=== PATIENT | female | born 1970 | race Caucasian/White ===

== ENCOUNTER 2018-05-01 08:06 | Inpatient (IN) ==
--- NOTE | 2018-03-31 14:14 | Anesthesiology Consultation ---
Date of Service March 31, 2018 Assessment & Plan (1) Encounter for pre-operative examination: Plan: CHECK TEST AM DOS *POSSIBLE DIFFICULT INTUBATION BASED ON EXAM* Chart Review Chart Review: Acceptable Risk for Surgery and Patient seen in Pre Admission Testing Teaching & Discussion Instructed NPO after midnight before surgery, except medications with 15 cc of water. Medication instructions provided according to the PAT guidelines. History Surgery Operation Date: 05/01/18 10:40 Proposed Procedures p Right Total Knee Arthroplasty - Abhinav Herrera MD Height/Weight Height: 5 ft Weight: 94.3 kg Allergies Allergy/AdvReac Type Severity Reaction Status Date / Time azithromycin [From Zithromax] AdvReac Severe VOMITING Verified 03/28/18 09:58 AND HEADACHE hydralazine AdvReac Severe LIGHTHEADED, Verified 03/28/18 09:58 VOMITING, HEADACHE amoxicillin AdvReac NOT Verified 03/28/18 09:58 EFFECTIVE Medications Home Medications Medication Instructions Recorded Confirmed Last Taken albuterol sulfate [Ventolin HFA] 2 puff INHALATION Q4H PRN 03/28/18 03/28/18 Unknown atenolol 50 mg PO BID 03/28/18 03/28/18 Unknown buspirone 5 mg PO BID PRN 03/28/18 03/28/18 Unknown cephalexin 500 mg PO QID 03/28/18 03/28/18 Unknown citalopram 10 mg PO HS 03/28/18 03/28/18 Unknown cyanocobalamin (vitamin B-12) 1,000 mcg PO QAM 03/28/18 03/28/18 Unknown [Vitamin B-12] digestive enzymes 1 tab PO AC 03/28/18 03/28/18 Unknown fexofenadine [Aliya Allergy] 180 mg PO HS 03/28/18 03/28/18 Unknown fexofenadine-pseudoephedrine 1 tab PO Q12H PRN 03/28/18 03/28/18 Unknown [Alyia-D 12 Hour] fluconazole 150 mg PO UD 03/28/18 03/28/18 Unknown fluticasone [Flonase Allergy 2 spray INTRANASAL BID PRN 03/28/18 03/28/18 Unknown Relief] lutein 6 mg PO HS 03/28/18 03/28/18 Unknown meloxicam 15 mg PO QAM 03/28/18 03/28/18 Unknown nifedipine 30 mg PO QAM 03/28/18 03/28/18 Unknown turmeric root extract 500 mg PO HS PRN 03/28/18 03/28/18 Unknown turmeric root extract 500 mg PO QDL 03/28/18 03/28/18 Unknown Past Medical History Medical History Anxiety Asthma EXERCISE INDUCED. Cellulitis of leg 01/2018. Treated OP with ABX. Resolved now. Wearing compression stockings. Depression Hypertension Morbid (severe) obesity due to excess calories Nausea and vomiting after administration of anesthetic agent Osteoarthritis Past Surgical History Surgical History H/O laparoscopy For infertility H/O wisdom tooth extraction History of PONV Yes Motion Sickness Screening History of Motion Sickness: Yes Social History Smoking Status: Never smoker Do You Dip or Chew Tobacco: No Hx Alcohol Use: No Hx Substance Use: No substance use type: does not use Exercise / Class Metabolic Activity III < 4 Walking/Shop/Light housework (some +SOB with stairs but no CP. Does stairs daily, set of 20 steps.) Review of Systems Pt denies any recent chest pain, shortness of breath, palpitations, cough, fever or URI. Physical Exam Vital Signs BP: 118/76 P: 73bpm SPO2: 97% RA T: 98.4 F R: 16 Constitutional + obese ENMT Mouth: no dental restorations, no chipped teeth and no loose teeth Thyromental Distance: < 3.5 Finger Breadths (3) Mallampati Class: IV Neck + short neck; neck extension not limited Respiratory normal respiratory effort Auscultation: lungs clear to auscultation bilaterally Cardiovascular Rate/Rhythm: regular rate and regular rhythm Heart Sounds: no murmur Vessels: no carotid bruit Extremities: no edema (wearing compression stockings) Testing Electrocardiogram Date: 03/31/18 Findings: + NSR @ (65) Chest X-Ray Date: 03/31/18 Low lung volumes. No acute cardiomegaly findings. Laboratory Results 03/31/18 14:32 03/31/18 14:32 Blood Type O Positive 03/31/18 14:32 Antibody Screen NEGATIVE 03/31/18 14:32 PT 10.4 Seconds (9.0-12.0) 03/31/18 14:32 INR 1.0 (0.9-1.1) 03/31/18 14:32 APTT 24.3 Seconds (21.0-31.0) 03/31/18 14:32 Hemoglobin A1c 5.6 % (4.5-5.6) 03/31/18 14:32 Urine Color Yellow 03/31/18 14:32 Urine Appearance Clear (Clear) 03/31/18 14:32 Urine pH 5.0 (4.5-7.5) 03/31/18 14:32 Ur Specific [place] 1.028 (1.000-1.030) 03/31/18 14:32 Urine Protein Negative (Negative) 03/31/18 14:32 Urine Glucose (UA) Negative (Negative) 03/31/18 14:32 Urine Ketones Negative (Negative) 03/31/18 14:32 Urine Nitrite Negative (Negative) 03/31/18 14:32 Ur Leukocyte Esterase Negative (Negative) 03/31/18 14:32
--- NOTE | 2018-03-31 14:28 | PAT Medication Instructions ---
Medication Instructions Date of Service March 31, 2018 Home Medications albuterol sulfate [Ventolin HFA] 2 puff INHALATION Q4H PRN atenolol 50 mg PO BID buspirone 5 mg PO BID PRN cephalexin 500 mg PO QID citalopram 10 mg PO HS cyanocobalamin (vitamin B-12) 1,000 mcg PO QAM digestive enzymes 1 tab PO AC fexofenadine [Aliya Allergy] 180 mg PO HS fexofenadine-pseudoephedrine [Aliya-D 12 Hour] 1 tab PO Q12H PRN fluconazole 150 mg PO UD fluticasone [Flonase Allergy 2 spray INTRANASAL BID PRN lutein 6 mg PO HS meloxicam 15 mg PO QAM nifedipine 30 mg PO QAM turmeric root extract 500 mg PO HS PRN turmeric root extract 500 mg PO QDL Continue as directed cephalexin 500 mg PO QID fluconazole 150 mg PO UD ASK your surgeon for instructions meloxicam 15 mg PO QAM STOP taking 2 weeks before surgery turmeric root extract 500 mg PO HS PRN turmeric root extract 500 mg PO QDL lutein 6 mg PO HS DO NOT take the morning of surgery cyanocobalamin (vitamin B-12) 1,000 mcg PO QAM digestive enzymes 1 tab PO AC fexofenadine-pseudoephedrine [Aliya-D 12 Hour] 1 tab PO Q12H PRN Take morning of surgery With a small sip of water, OTHERWISE NOTHING TO EAT OR DRINK AFTER MIDNIGHT: albuterol sulfate [Ventolin HFA] 2 puff INHALATION Q4H PRN (if needed, and bring with you to the hospital) atenolol 50 mg PO BID buspirone 5 mg PO BID PRN (if needed) fluticasone [Flonase Allergy 2 spray INTRANASAL BID PRN (if needed) nifedipine 30 mg PO QAM Take evening before surgery albuterol sulfate [Ventolin HFA] 2 puff INHALATION Q4H PRN (if needed) atenolol 50 mg PO BID buspirone 5 mg PO BID PRN citalopram 10 mg PO HS fexofenadine [Aliya Allergy] 180 mg PO HS fluticasone [Flonase Allergy 2 spray INTRANASAL BID PRN (if needed) Other Notes If you have any questions please call us at [phone] or [phone] or [phone] or [phone]
--- NOTE | 2018-03-31 15:24 | XRay Report ---
XR chest Pre-admission PA/Lat CLINICAL HISTORY: Preoperative evaluation. COMPARISON STUDY: No previous studies for comparison. FINDINGS: Lung volumes are mildly diminished. There is no consolidation or evidence for pulmonary doron ma. Cardiac size is at the upper limits of normal. Lungs are clear. Chondroid lesions within the prox imal right humerus favor enchondromas. IMPRESSION: Low lung volumes. No acute cardiomegaly findings. Electronically signed by: Demetrius Myrick M.D. 03/31/2018 3:23 PM
[2018-03-31 15:44] LABS: Basophils # (auto) 0.06 K/uL (0-0.2); Basophils % (auto) 0.9 %; Eosinophils # (auto) 0.09 K/uL (0-0.5); Eosinophils % (auto) 1.4 %; Hematocrit (blood only) 41.7 % (37-47); Hemoglobin 14.2 g/dL (12.0-16.0); Immature Granulocytes # (auto) 0.01 K/uL (0.00-0.02); Immature Granulocytes % (auto) 0.2 %; Lymphocytes # (auto) 2.04 K/uL (1.2-3.4); Lymphocytes % (auto) 31.4 %; Mean Corpuscular Hgb Conc 34.1 g/dL (32-36); Mean Corpuscular Volume 95.2 fL (80-100); Mean Platelet Volume 10.9 fL (7.4-10.4); Monocytes # (auto) 0.53 K/uL (0.11-0.59); Monocytes % (auto) 8.2 %; Neutrophils # (auto) 3.76 K/uL (1.4-6.5); Neutrophils % (auto) 57.9 %; Platelet Count 350 K/uL (130-400); RDW Coefficient of Variation 13.2 % (11.5-14.5); RDW Standard Deviation 45.7 fL (36.4-46.3); Red Blood Count 4.38 M/uL (4.2-5.4); White Blood Count 6.49 K/uL (4.8-10.8)
[2018-03-31 15:46] LABS: Appearance Urine Clear (Clear); Bilirubin Urine Negative (Negative); Blood Urine Negative (Negative); Color Urine Yellow; Glucose Urine UA Negative (Negative); Ketones Urine Negative (Negative); Leukocyte Esterase Urine Negative (Negative); Nitrite Urine Negative (Negative); Protein Urine Negative (Negative); Specific Gravity Urine 1.028 (1.000-1.030); Urobilinogen Urine Negative (Negative)
[2018-03-31 15:51] LABS: Albumin Level 3.5 gm/dl (3.4-5.0); BUN Creatinine Ratio 14.1 (10-20); Calcium 8.7 mg/dl (8.5-10.1); Creatinine Clr Calc Pharmacy 92.9 ml/min; Est GFR (African American) 107.5; Est GFR (Non-African American) 92.8; Potassium 3.7 mmol/L (3.5-5.1)
[2018-03-31 15:55] LABS: Partial Thromboplastin Ratio 0.9; Partial Thromboplastin Time 24.3 Seconds (21.0-31.0); Prothrombin Time 10.4 Seconds (9.0-12.0)
[2018-04-01 06:41] LABS: Estimated Average Glucose 114 mg/dl; Hemoglobin A1C 5.6 % (4.5-5.6)
--- NOTE | 2018-04-30 16:07 | History and Physical Report ---
DATE OF ADMISSION: 05/01/2018 CHIEF COMPLAINT: Chronic right knee pain and instability. HISTORY OF PRESENT ILLNESS: This is a 47-year-old female patient of Dr. Herrera'ravin complaining of chronic right knee pain and instability. She has been diagnosed with end-stage osteoarthritis per clinical and radiographic exams. The patient has failed conservative treatment including anti-inflammatories, intraarticular injections and home exercise program. The patient has increased pain with weightbearing activities and her pain does interfere with her activities of daily living. PAST MEDICAL HISTORY: Hypertension, asthma, osteoarthritis, sciatica, obesity. SOCIAL HISTORY: Nonsmoker, nondrinker. PAST SURGICAL HISTORY: Negative. FAMILY HISTORY: Noncontributory. REVIEW OF SYSTEMS: Chronic right knee pain and instability. Otherwise, denies any shortness of breath, chest pain, nausea, vomiting or any other joint complaints. MEDICATIONS: Lutein 6 mg daily, atenolol 50 mg twice daily, meloxicam 50 mg daily, nifedipine 30 mg daily, turmeric root extract 500 mg daily, escitalopram 10 mg daily, Ventolin HFA 90 mcg/ actuation 2 puffs every 4-6 hours as needed, Flonase 50 mcg actuation 2 sprays in each nostril daily as needed, buspirone 5 mg twice daily, Aliya-D 12-hour 60/120 twice daily. ALLERGIES: AMOXICILLIN, AZITHROMYCIN, AUGMENTIN, THEY CALL CAUSE GI UPSET AND HEADACHE. PHYSICAL EXAMINATION: GENERAL: Well-developed, well-nourished 47-year-old female in no acute distress. She is alert and oriented x3 and pleasant. HEENT: Normocephalic, atraumatic. Extraocular motions are intact. Pupils equal and reactive to light. HEART: Regular rate and rhythm. No murmurs are appreciated. LUNGS: Clear. ABDOMEN: Soft and nontender. Bowel sounds are present. EXTREMITIES: Right knee reveals a limited range of motion of 0-115. The patient has a varus deformity with medial joint line tenderness. She has 4/5 strength with pain and crepitation. She has a mild effusion. NEUROLOGICAL: Neurovascularly, she is intact in her right lower extremity. DIAGNOSES: Right knee end-stage osteoarthritis, hypertension, activity-induced asthma, osteoarthritis, sciatica, obesity. PLAN: The patient was advised of her diagnosis. Indications, risks, benefits, postop course have all been reviewed. The patient wished to proceed with a right total knee arthroplasty. Necessary consent forms, preoperative testing and clearances will be obtained. GARRETT
[~2018-05-01 08:06] MED LIST: ACETAMINOPHEN 500 MG TAB PO SCH; BUPIVACAINE 0.5 % 5 MG/1 ML PF 10ML VIAL ONE; BUPIVACAINE/EPINEPHRINE 0.5% MPF 1:200,000 30 ML VIAL ONE; CeleBREX 200 MG CAP PO SCH; DEXAMETHASONE SOD INJ 4 MG/ML VIAL ONE; FAMOTIDINE 20 MG TAB PO SCH; GABAPENTIN 300 MG x 3 PO SCH; LR 15ML/HR IV SCH; METOCLOPRAMIDE HCL 10 MG TABLET PO SCH; ROPIVACAINE 0.5% HCL/PF 150 MG, BUPIVACAINE 0.5% MPF 30 ML, EPINEPHrine 30MG/30ML (OR U... INFIL SCH; TRANEXAMIC ACID 1,000 MG **IV Intra-op IV SCH; TRANEXAMIC ACID 1,000 MG **IV Pre-op IV SCH; VANCOMYCIN HCL 1,500 MG in SODIUM CHLORIDE 0.9% 500 ML IV SCH; dexAMETHasone 4 MG TAB PO SCH
[2018-05-01] MEDS ORDERED: fentaNYL citrate 100 MCG/2 ML VIAL ONE (08:24)
[2018-05-01] MEDS ORDERED: MIDAZOLAM HCL 1 MG/ML 2ML VIAL ONE ×2 (08:25)
--- NOTE | 2018-05-01 08:58 | History & Physical Bridge Note ---
Date of Service May 01, 2018 History & Physical Bridge Note I have examined the patient, reviewed the History & Physical and in the interval since the performance of the History & Physical I have noted the following changes of clinical significance: no changes noted
[2018-05-01] MEDS ORDERED: BACITRACIN INJ 50,000 UNIT VIAL ONE (09:31)
[2018-05-01] MEDS ORDERED: POVIDONE-IODINE OP SOLN 30 ML BTL ONE (09:31)
[2018-05-01] MEDS ORDERED: ATROPINE SULFATE 0.1 MG/ML 10ML SYR IV PRN (10:05)
[2018-05-01] MEDS ORDERED: ePHEDrine sulfate 50 MG/ML AMP IV PRN (10:05)
[2018-05-01] MEDS ORDERED: fentaNYL citrate 100 MCG/2 ML VIAL IV PRN (10:05)
[2018-05-01] MEDS ORDERED: PROMETHAZINE HCL 6.25 MG in SODIUM CHLORIDE 0.9% 50 ML IV PRN (10:05)
[2018-05-01] MEDS ORDERED: ONDANSETRON INJ 2 MG/ML 2 ML VIAL IV PRN ×2 (10:05→15:10)
[2018-05-01] MEDS ORDERED: PROPOFOL IV EMULSION 10 MG/ML 20 ML VIAL IV ONE (11:46)
[2018-05-01] MEDS ORDERED: LIDOCAINE HCL 2% 2 ML VIAL/AMP(20MG/ML) INFIL ONE (11:46)
[2018-05-01] MEDS: ORTHO JOINT ANESTHETIC ONE ×2 (12:04→15:38)
[2018-05-01] MEDS ORDERED: ONDANSETRON INJ 2 MG/ML 2 ML VIAL ONE (12:56)
--- NOTE | 2018-05-01 13:06 | Post Operative Brief Note ---
Immediate Post Op Note v1 Date of Surgery May 01, 2018 Pre & Post Diagnosis Operation Date: 05/01/18 10:40 Pre-Op Diagnosis: Right Knee Osteoarthritis Post-Op Diagnosis: Right Knee Osteoarthritis Procedure Operation Date: 05/01/18 10:40 Actual Procedures p Right Total Knee Arthroplasty(Right) - Abhinav Herrera MD Surgeon Abhinav Herrera MD Hearth Feeder Bharat NICOLE Estimated Blood Loss 5 Findings Consistent with Post-Op Diagnosis Specimens Bone cuts Drains Hemovac Drain Anesthesia Type Spinal MAC Complications none Disposition Accompanied Patient To Recovery: No Disposition: Recovery Room Overlapping Procedure I was present for: the critical portions of procedure.
--- NOTE | 2018-05-01 14:22 | Anesthesiology Progress Note ---
Date of Service May 01, 2018 Anesthesia Post Procedure Vital Signs Vital Signs: Temp Pulse Pulse Resp BP Pulse Ox 05/01/18 14:15 86 16 123/70 96 05/01/18 14:05 86 16 101/71 96 05/01/18 13:55 86 16 117/60 96 05/01/18 13:45 88 16 113/62 98 05/01/18 13:36 37 C 88 20 100/53 L 94 05/01/18 09:05 36.5 C 76 20 141/99 H 95 Pain Intensity Right Knee: Pain Intensity: 10 Notes Mental Status: alert / awake / arousable Patient Amnestic to Procedure: Yes Nausea / Vomiting: adequately controlled Pain: adequately controlled Airway Patency, RR, SpO2: stable & adequate BP & HR: stable & adequate Hydration State: stable & adequate Neuraxial Anesthesia: was administered and sensory block is resolving Anesthetic Complications: no major complications apparent
--- NOTE | 2018-05-01 14:51 | XRay Report ---
RIGHT KNEE 2 VIEWS History: Right total knee arthroplasty. Degenerative arthritis. Postop. FINDINGS: The patient is status post a right total knee arthroplasty. The hardware is intact. No frac ture or dislocation. Skin musa and surgical drains are in place. IMPRESSION: Right total knee arthroplasty. No evidence for hardware complication. Electronically signed by: Juwan Campos M.D. 05/01/2018 2:50 PM
[2018-05-01] MEDS ORDERED: VANCOMYCIN CONSULT ACTIVE PRN (15:10)
[2018-05-01] MEDS ORDERED: ALBUTEROL HFA 8 GM INHALER INH PRN (15:10)
[2018-05-01] MEDS ORDERED: HYDROmorphone INJ 0.5 MG/0.5 ML SYR IV PRN (15:10)
[2018-05-01] MEDS ORDERED: METOCLOPRAMIDE HCL INJ 5 MG/ML 2 ML VIAL IV PRN (15:10)
[2018-05-01] MEDS ORDERED: FLUTICASONE PROPIONATE NA SPR 16 GM BTL PRN (15:10)
[2018-05-01] MEDS ORDERED: FEXOFENADINE 60MG/PSEUDOEPHEDRINE 120MG TAB PO PRN (15:10)
[2018-05-01] MEDS ORDERED: MAGNESIUM HYDROXIDE SUSP 30 ML UDC PO PRN (15:10)
[2018-05-01] MEDS ORDERED: BISACODYL 10 MG SUPP PR PRN (15:10)
[2018-05-01] MEDS ORDERED: FLUCONAZOLE 50 MG TAB PO SCH (15:10)
[2018-05-01] MEDS ORDERED: NALOXONE HCL 0.4 MG/1 ML VIAL/CARP IV PRN (15:10)
--- NOTE | 2018-05-01 15:57 | Operative Report ---
Post Operative Report Pre & Post Diagnosis Operation Date: 05/01/18 10:40 Pre-Op Diagnosis: Right Knee Osteoarthritis Post-Op Diagnosis: Right Knee Osteoarthritis Procedure Operation Date: 05/01/18 10:40 Actual Procedures p Right Total Knee Arthroplasty(Right) - Abhinav Herrera MD Surgeon Abhinav Herrera MD Healthcare Economics Manager Bharat NICOLE Estimated Blood Loss 5 Findings Consistent with Post-Op Diagnosis Specimens Bone cuts Drains 2 Hemovac Anesthesia Type Spinal MAC Complications none Disposition Accompanied Patient To Recovery: No Disposition: Recovery Room Indications 39-year-old female with chronic progressive osteoarthritis in the right knee failed conservative management. Radiographs demonstrate she is a varus knees [id number] medial compartment she advanced patellofemoral osteoarthritis with large osteophytes patellofemoral joint. Description of Procedure The patient was taken to the operating room and anesthetized under spinal MAC regional block anesthesia. Patient was placed supine on the the operating table. A pneumatic tourniquet was placed about the right upper thigh. The knee exam demonstrated 0 through 130 degrees range of motion no instability. The involved leg was elevated exsanguinated with Esmarch bandage and the pneumatic tourniquet was raised to 325 millimeters mercury. A longitudinal incision was made across the anterior knee. Skin flaps were elevated. An incision was made into the medial retinaculum and extended up into the mid third of the quadriceps tendon and extended down to the tibial tubercle. Intra-articular findings demonstrated grade 4 medial compartment OA some bone loss advanced patellofemoral OA with large osteophytes. The knee was exposed by excising cruciate ligaments and menisci. The infrapatellar fat pad was resected. The fat pad over the anterior femur at the upper aspect of the articular surface was resected for placement of the component in that area. A subperiosteal peel lateral release was performed around the patella The Hernandez [employer]hew journey 2.0 total knee arthroplasty system was utilized for the procedure. The custom femoral cutting guide was pinned in position. The distal femoral cut was made. The size 4, 5 in 1 cutting block was placed. The anterior posterior and chamfer cuts were made. The knee was extended and a free hand cut technique was performed to the patella. The patella with was measured and the width was reproduced using a 32 patella component. 3 drill holes are made for the patella component pegs. The tibia was then subluxed. The custom tibial cutting block was pinned in position and the proximal tibial cut was made with the oscillating saw. The size 2 tibial trial was externally rotated in line with the tibial tubercle and pinned in position. The punch for the stem was used. The femoral trial was inserted and centered the notch cutting devices were used and the collet was placed. Tibial trials were used for the insert. The size 11 trial gave balanced ligaments through full range of motion. Patella tracking was assessed with range of motion. The patella tracked centrally. The trials were removed. The Orthomix anesthetic cocktail was injected per protocol. The cut bone surfaces and soft tissue were copiously irrigated with antibiotic solution with bacitracin. The final components were cemented with Simplex cement. The final components were size 4 right Hernandez [employer]hew journey posterior stabilized femoral component, 2 tibial baseplate, 11 mm posterior stabilized polyethylene insert and 32 symmetrical patella. While the cement cured the Betadine soak was used per protocol. When the cement cured the knee was copiously irrigated with pulsatile lavage antibiotic solution with reagan itracin. 2 drains were brought out laterally connected to Hemovac. The quadriceps tendon and medial retinaculum were closed with interrupted [id number] #1 Vicryl sutures. The knee was taken through full range of motion and repair was secure. The subcutaneous tissues were closed with 2-0 Vicryl sutures. The skin was closed with msua. A sterile Silverlon dressing was applied. The tourniquet was let down and the patient had good capillary refill to the extremity. The patient tolerated the procedure well. My physician cook's assistant Bharat NICOLE assisted in the procedure including prepping draping leg positioning soft tissue retraction instrument management and assisted in the closure ,dressings application and will participate in postoperative care the patient. I attest to the content of the Intraoperative Record and any orders documented therein. Any exceptions are noted below.
[2018-05-01] MEDS ORDERED: DIGESTIVE ENZYMES PO SCH (16:30)
[2018-05-01] MEDS: SODIUM CHLORIDE 0.9% 1000ML 1,000 ML IV SCH (17:48)
[2018-05-01] MEDS: OXYCODONE HCL IR 5 MG TAB (IMMEDIATE RELEASE) PO PRN ×2 (17:48→22:09)
[2018-05-01] MEDS ORDERED: VANCOMYCIN HCL 1,500 MG in SODIUM CHLORIDE 0.9% 500 ML IV SCH (20:00)
[2018-05-01] MEDS ORDERED: NON-FORMULARY MEDICATION (Lutein 6 MG) PO SCH (21:00)
[2018-05-01] MEDS: FEXOFENADINE HCL 180 MG TAB PO SCH (21:13)
[2018-05-01] MEDS: SENNA 8.6 MG TAB PO SCH (21:13)
[2018-05-01] MEDS: ACETAMINOPHEN 500 MG TAB PO SCH (21:14)
[2018-05-01] MEDS: DOCUSATE SODIUM 100 MG CAP PO SCH (21:14)
[2018-05-01] MEDS: CITALOPRAM 20 MG TAB PO SCH (21:15)
[2018-05-01] MEDS: ATENOLOL 50 MG TABLET PO SCH (21:16)
[2018-05-02] MEDS: SODIUM CHLORIDE 0.9% 1000ML 1,000 ML IV SCH (05:52)
[2018-05-02] MEDS: ACETAMINOPHEN 500 MG TAB PO SCH ×3 (05:53→21:29)
[2018-05-02] MEDS: TRAMADOL HCL 50 MG TABLET PO PRN ×3 (05:54→23:58)
[2018-05-02 06:13] LABS: Hemoglobin 13.1 g/dL (12.0-16.0); Mean Corpuscular Hgb Conc 34.5 g/dL (32-36); Mean Platelet Volume 9.8 fL (7.4-10.4); Platelet Count 313 K/uL (130-400); RDW Coefficient of Variation 13.5 % (11.5-14.5); RDW Standard Deviation 46.8 fL (36.4-46.3); Red Blood Count 3.96 M/uL (4.2-5.4); White Blood Count 15.43 K/uL (4.8-10.8)
[2018-05-02 06:44] LABS: BUN Creatinine Ratio 13.8 (10-20); Calcium 7.9 mg/dl (8.5-10.1); Est GFR (African American) 104.2; Est GFR (Non-African American) 89.9; Potassium 3.9 mmol/L (3.5-5.1)
--- NOTE | 2018-05-02 08:04 | Anesthesiology Progress Note ---
Date of Service May 02, 2018 Anesthesia Post Procedure Vital Signs Vital Signs: Temp Pulse Pulse Resp BP Pulse Ox 05/02/18 07:11 36.8 C 76 18 114/70 94 05/02/18 03:34 37.0 C 86 16 99/62 L 98 05/01/18 22:58 36.6 C 84 16 120/71 94 05/01/18 21:18 78 115/79 05/01/18 19:00 36.6 C 85 16 125/73 95 05/01/18 18:00 37.1 C 92 H 16 139/81 94 05/01/18 17:00 37.1 C 87 16 122/75 98 05/01/18 16:00 36.9 C 82 16 116/75 96 05/01/18 15:30 36.4 C L 79 16 136/87 98 05/01/18 15:00 36.6 C 84 16 115/77 96 05/01/18 14:35 86 16 116/66 96 05/01/18 14:25 37 C 86 16 112/64 96 05/01/18 14:15 86 16 123/70 96 05/01/18 14:05 86 16 101/71 96 05/01/18 13:55 86 16 117/60 96 05/01/18 13:45 88 16 113/62 98 05/01/18 13:36 37 C 88 20 100/53 L 94 05/01/18 09:05 36.5 C 76 20 141/99 H 95 Pain Intensity Right Knee: Pain Intensity: 2 Notes Mental Status: alert / awake / arousable Nausea / Vomiting: adequately controlled Pain: adequately controlled Airway Patency, RR, SpO2: stable & adequate BP & HR: stable & adequate Hydration State: stable & adequate Neuraxial Anesthesia: was administered and sensory block resolved Anesthetic Complications: no major complications apparent and Pt Satisfied with anesthetic care
--- NOTE | 2018-05-02 08:15 | Orthopedic Progress Note ---
Date of Service May 02, 2018 Assessment & Plan (1) Right knee DJD: POD #1, Right TKA PT/ OT DVT proph- Xarelto D/C planning- Home w OPPT. Subjective POD #1, Doing well, denies SOB. CP, N/V. Pain controlled well. Physical Exam Vital Signs (Past 24 Hours): Last Vital Signs Temp 36.8 C 05/02/18 07:11 Pulse 76 05/02/18 07:11 Resp 18 05/02/18 07:11 BP 114/70 05/02/18 07:11 Pulse Ox 94 05/02/18 07:11 Physical Exam: Right knee dressings c/d/i, no drainage, toes and ankle mobile. No calf tenderness, A&Ox3.
[2018-05-02] MEDS: RIVAROXABAN 10 MG TABLET PO SCH (09:09)
[2018-05-02] MEDS: CYANOCOBALAMIN 500 MCG TABLET (VITAMIN B-12) PO SCH (09:09)
[2018-05-02] MEDS: NIFEdipine EXTENDED REL 30 MG TABCR PO SCH (09:09)
[2018-05-02] MEDS: DOCUSATE SODIUM 100 MG CAP PO SCH ×2 (09:10→20:36)
[2018-05-02] MEDS: MULTIVITAMIN TAB PO SCH (09:10)
[2018-05-02] MEDS: ATENOLOL 50 MG TABLET PO SCH ×2 (09:10→20:37)
[2018-05-02] MEDS: OXYCODONE HCL IR 5 MG TAB (IMMEDIATE RELEASE) PO PRN ×3 (09:13→20:42)
[2018-05-02] MEDS ORDERED: AMIKACIN CONSULT ACTIVE PRN (09:44)
[2018-05-02] MEDS: CITALOPRAM 20 MG TAB PO SCH (20:34)
[2018-05-02] MEDS: FEXOFENADINE HCL 180 MG TAB PO SCH (20:36)
[2018-05-02] MEDS: SENNA 8.6 MG TAB PO SCH (20:36)
[2018-05-03] MEDS: ACETAMINOPHEN 500 MG TAB PO SCH (05:46)
[2018-05-03 05:55] LABS: Hematocrit (blood only) 35.3 % (37-47); Hemoglobin 11.6 g/dL (12.0-16.0); Mean Corpuscular Hgb Conc 32.9 g/dL (32-36); Mean Corpuscular Volume 96.4 fL (80-100); Mean Platelet Volume 9.9 fL (7.4-10.4); Platelet Count 295 K/uL (130-400); RDW Coefficient of Variation 13.9 % (11.5-14.5); RDW Standard Deviation 49.3 fL (36.4-46.3); Red Blood Count 3.66 M/uL (4.2-5.4); White Blood Count 11.17 K/uL (4.8-10.8)
[2018-05-03] MEDS: OXYCODONE HCL IR 5 MG TAB (IMMEDIATE RELEASE) PO PRN ×2 (06:11→13:24)
[2018-05-03 06:29] LABS: BUN Creatinine Ratio 15.9 (10-20); Calcium 7.9 mg/dl (8.5-10.1); Creatinine Clr Calc Pharmacy 106.6 ml/min; Est GFR (African American) 119.9; Est GFR (Non-African American) 103.4; Potassium 3.8 mmol/L (3.5-5.1)
--- NOTE | 2018-05-03 07:50 | Orthopedic Progress Note ---
Date of Service May 03, 2018 Assessment & Plan (1) Right knee DJD: POD #2, Right TKA PT/ OT DVT proph- Xarelto D/C planning- Home w OPPT. Plan for discharge to home after PT today. Discussed with the patient that if she continues to have some drainage with the Silverlon dressing, that she should go to a regular gauze bandage with Goran wrap for compression. Subjective Postop day 2 status post right total knee arthroplasty. Patient is currently sitting up in her chair at the bedside. She has no overt complaints. Pain is controlled. She denies shortness of breath, chest pain, lightheadedness. She is hoping to go home today. Physical Exam Vital Signs (Past 24 Hours): Last Vital Signs Temp 36.7 C 05/03/18 06:25 Pulse 71 05/03/18 06:25 Resp 16 05/03/18 06:25 BP 134/86 05/03/18 06:25 Pulse Ox 92 05/03/18 06:25 Physical Exam: Dressings and drain were removed early this morning. A Silverlon dressing was applied and the dressing window is saturated. She has no drainage coming out from underneath the dressing at this time. Calves are soft and nontender. Neurovascular is intact. Toes are mobile.
[2018-05-03] MEDS: ATENOLOL 50 MG TABLET PO SCH (08:26)
[2018-05-03] MEDS: RIVAROXABAN 10 MG TABLET PO SCH (08:26)
[2018-05-03] MEDS: CYANOCOBALAMIN 500 MCG TABLET (VITAMIN B-12) PO SCH (08:27)
[2018-05-03] MEDS: NIFEdipine EXTENDED REL 30 MG TABCR PO SCH (08:27)
[2018-05-03] MEDS: DOCUSATE SODIUM 100 MG CAP PO SCH (08:27)
[2018-05-03] MEDS: MULTIVITAMIN TAB PO SCH (08:27)
[2018-05-03] MEDS: TRAMADOL HCL 50 MG TABLET PO PRN (11:44)
--- NOTE | 2018-05-04 07:42 | Discharge Summary ---
Date of Service May 17, 2018 Discharge Data Consultations 05/01/18 15:10 Consult Case Management - Discharge Planning Routine Procedures Performed Operation Date: 05/01/18 10:40 Actual Procedures p Right Total Knee Arthroplasty(Right) - Abhinav Herrera MD
--- NOTE | 2018-05-16 21:17 | Discharge Summary ---
HISTORY OF PRESENT ILLNESS: This is a 47-year-old female patient of Dr. Raza, complaining of chronic right knee pain and instability. She was diagnosed with end-stage osteoarthritis per clinical and radiographic exam. She failed conservative treatment and elected to proceed with a right total knee arthroplasty. PAST MEDICAL HISTORY: Hypertension, asthma, osteoarthritis, sciatica and obesity. POSTOPERATIVE COURSE: The patient underwent a right total knee arthroplasty on 05/01/2018. She was followed closely with physical therapy, pain control and DVT prophylaxis in the form of Xarelto. The patient had an uneventful postoperative course and was discharged home on postoperative day #2. PHYSICAL EXAMINATION ON DISCHARGE: Right knee Silverlon dressing was clean, dry and intact. There is no redness or drainage. She had no calf tenderness. Negative Homans sign. Neurologically and neurovascularly she is intact in her right lower extremity. DIAGNOSES: Status post right total knee arthroplasty with a history of hypertension, asthma, osteoarthritis, sciatica, and obesity. PLAN: The patient was discharged home with outpatient physical therapy. She will continue on her preadmission medications with the addition of Xarelto for DVT prophylaxis and pain medications. The patient will follow up as scheduled as an outpatient.
== END 2018-05-03 13:58 | disposition home or self-care (01) | DRG 470 ==
LOC: ASU 08:06 → 3E 13:50

== ENCOUNTER 2019-03-07 07:30 | Inpatient (IN) ==
--- NOTE | 2019-01-29 12:37 | PAT Medication Instructions ---
Medication Instructions Date of Service January 29, 2019 Home Medications Medication Instructions Recorded oxycodone 5 mg PO Q4H PRN #30 tab 05/03/18 sennosides [Senokot] 17.2 mg PO HS #30 tab 05/03/18 albuterol sulfate [Ventolin HFA] 2 puff INHALATION Q4H PRN atenolol 50 mg PO BID buspirone 5 mg PO BID PRN citalopram 10 mg PO HS cyanocobalamin (vitamin B-12) [Vitamin B-12] 1,000 mcg PO QAM digestive enzymes 1 tab PO AC fexofenadine [Aliya Allergy] 180 mg PO HS fexofenadine-pseudoephedrine [Aliya-D 12 Hour] 1 tab PO Q12H PRN fluconazole 150 mg PO UD fluticasone propionate [Flonase Allergy Relief] 2 spray INTRANASAL BID PRN lutein 6 mg PO HS nifedipine 30 mg PO QAM turmeric root extract 500 mg PO QAM oxycodone 5 mg PO Q4H PRN sennosides [Senokot] 17.2 mg PO HS meloxicam 15 mg PO QAM Continue as directed fluconazole 150 mg PO UD ASK your surgeon for instructions meloxicam 15 mg PO QAM STOP taking 2 weeks before surgery (or as soon as possible if surgery is within 2 weeks) lutein 6 mg PO HS turmeric root extract 500 mg PO QAM DO NOT take the morning of surgery cyanocobalamin (vitamin B-12) [Vitamin B-12] 1,000 mcg PO QAM digestive enzymes 1 tab PO AC fexofenadine-pseudoephedrine [Aliya-D 12 Hour] 1 tab PO Q12H PRN Take morning of surgery With a small sip of water, OTHERWISE NOTHING TO EAT OR DRINK AFTER MIDNIGHT: albuterol sulfate [Ventolin HFA] 2 puff INHALATION Q4H PRN (use if needed; please bring with you to hospital day of surgery if possible) atenolol 50 mg PO BID buspirone 5 mg PO BID PRN (if needed) fluticasone propionate [Flonase Allergy Relief] 2 spray INTRANASAL BID PRN (if needed) nifedipine 30 mg PO QAM oxycodone 5 mg PO Q4H PRN (okay to take up to 4 hours prior to surgery if needed) Take evening before surgery albuterol sulfate [Ventolin HFA] 2 puff INHALATION Q4H PRN (if needed) atenolol 50 mg PO BID buspirone 5 mg PO BID PRN (if needed) citalopram 10 mg PO HS digestive enzymes 1 tab PO AC fexofenadine [Aliya Allergy] 180 mg PO HS fexofenadine-pseudoephedrine [Aliya-D 12 Hour] 1 tab PO Q12H PRN (if needed) fluticasone propionate [Flonase Allergy Relief] 2 spray INTRANASAL BID PRN (if needed) oxycodone 5 mg PO Q4H PRN (if needed) sennosides [Senokot] 17.2 mg PO HS Other Notes If you have any questions please call us at [phone] or [phone] or [phone] or [phone]
--- NOTE | 2019-01-30 13:26 | Anesthesiology Consultation ---
Date of Service January 30, 2019 Assessment & Plan (1) Encounter for pre-operative examination: - S/P right TKA: 05/01/18: SAB x 1 at L3/4 + PNB at [facility] Chart Review Chart Review: Acceptable Risk for Surgery (pending surgeon-ordered PCP preop evaluation scheduled 02/26 (Naheed Myrick, [facility])) and Patient seen in Pre Admission Testing Teaching & Discussion Pre-Anesthesia Teaching/Discussion Notes: Instructed NPO after midnight before surgery,except medications with 15 cc of water. Medication instructions provided according to the PAT guidelines. History Surgery Operation Date: 03/07/19 09:30 Proposed Procedures p Left Total Knee Arthroplasty - Abhinav Herrera MD Height/Weight Height: 5 ft Weight: 94.2 kg Allergies Allergy/AdvReac Type Severity Reaction Status Date / Time azithromycin [From Zithromax] AdvReac Severe vomiting, Verified 01/30/19 14:48 headache hydralazine AdvReac Severe lightheaded, Verified 01/30/19 14:48 vomiting, headache amoxicillin AdvReac "not Verified 01/30/19 14:48 effective" Medications Home Medications Medication Instructions Recorded Confirmed Last Taken albuterol sulfate [Ventolin HFA] 2 puff INHALATION Q4H PRN 03/28/18 01/24/19 Unknown atenolol 50 mg PO BID 03/28/18 01/24/19 05/01/18 07:00 buspirone 5 mg PO BID PRN 03/28/18 01/24/19 Unknown citalopram 10 mg PO HS 03/28/18 01/24/19 04/30/18 23:00 cyanocobalamin (vitamin B-12) 1,000 mcg PO QAM 03/28/18 01/24/19 04/23/18 09:00 [Vitamin B-12] digestive enzymes 1 tab PO AC 03/28/18 01/24/19 04/23/18 08:00 fexofenadine [Aliya Allergy] 180 mg PO HS 03/28/18 01/24/19 04/29/18 22:00 fexofenadine-pseudoephedrine 1 tab PO Q12H PRN 03/28/18 01/24/19 Unknown [Aliya-D 12 Hour] fluconazole 150 mg PO UD 03/28/18 01/24/19 Unknown fluticasone propionate [Flonase 2 spray INTRANASAL BID PRN 03/28/18 01/24/19 Unknown Allergy Relief] lutein 6 mg PO HS 03/28/18 01/24/19 04/16/18 22:00 nifedipine 30 mg PO QAM 03/28/18 01/24/19 05/01/18 07:00 turmeric root extract 500 mg PO QAM 03/28/18 01/24/19 Unknown oxycodone 5 mg PO Q4H PRN #30 tab 05/03/18 01/24/19 Unknown sennosides [Senokot] 17.2 mg PO HS #30 tab 05/03/18 01/24/19 Unknown meloxicam 15 mg PO QAM 01/24/19 01/24/19 Unknown Past Medical History Medical History Anxiety Asthma exercise induced.stable Depression Hypertension Morbid obesity Osteoarthritis Exercise / Class Metabolic Activity III < 4 Walking/Shop/Light housework Past Family History Family History Mother Family history of diabetes mellitus Grandfather (Paternal) Family history of diabetes mellitus Grandmother (Paternal) Family history of diabetes mellitus Past Surgical History Surgical History H/O laparoscopy For infertility H/O wisdom tooth extraction History of total knee replacement RIGHT Past Anesthesia History No Hx of Anesthesia Complications (except PONV (no issues with most recent right TKA surgery)) and No Family Hx of Anesthesia Complications History of PONV History of PONV ((no issues with most recent right TKA surgery)) and Hx of Fred on Sickness (occasional) Social History Smoking Status: Never smoker Do You Dip or Chew Tobacco: No Hx Alcohol Use: No Hx Substance Use: No substance use type: does not use Review of Systems Patient denies chest pain, shortness of breath, reflux, cough, wheezing, palpitations. Physical Exam Vital Signs VITALS BP 125/81 P 66 TEMP 98.8 SP02 96%RA RESP 18 PHYSICAL Full neck and c-spine range of motion. Full TMJ range of motion. TMD 3.5 finger breaths Mallampati Score 3 Dentition: missing molar Lungs: clear throughout to auscultation Cardiac: regular rate and rhythm, no murmurs noted Spine: normal Carotid arteries: negative bruit Extremities: no edema Testing Laboratory Results 01/30/19 13:40 01/30/19 13:40 PT 10.1 Seconds (9.0-12.0) 01/30/19 13:40 INR 1.0 (0.9-1.1) 01/30/19 13:40 APTT 25.2 Seconds (21.0-31.0) 01/30/19 13:40 Hemoglobin A1c 5.9 % (4.5-5.6) H 01/30/19 13:40 Urine Color Dark Yellow 01/30/19 Unknown Urine Appearance Cloudy (Clear) A 01/30/19 Unknown Urine pH 5.0 (4.5-7.5) 01/30/19 Unknown Ur Specific [place] 1.036 (1.000-1.030) H 01/30/19 Unknown Urine Protein Negative (Negative) 01/30/19 Unknown Urine Glucose (UA) Negative (Negative) 01/30/19 Unknown Urine Ketones Negative (Negative) 01/30/19 Unknown Urine Nitrite Negative (Negative) 01/30/19 Unknown Ur Leukocyte Esterase Negative (Negative) 01/30/19 Unknown Urine WBC (Auto) 1-5 /hpf (0-5) 01/30/19 Unknown Urine RBC (Auto) 0-4 /hpf (0-4) 01/30/19 Unknown U Hyaline Cast (Auto) 1-5 /lpf (0-5) 01/30/19 Unknown U Epithel Cells (Auto) >30 /lpf (0-5) H 01/30/19 Unknown Urine Bacteria (Auto) Negative (Negative) 01/30/19 Unknown Blood Type O Positive 01/30/19 13:40 Antibody Screen NEGATIVE 01/30/19 13:40 Electrocardiogram Date: 03/31/18 Findings: + NSR @ (65) Chest X-Ray Date: 03/31/18 Lung volumes are mildly diminished. There is no consolidation or evidence for pulmonary edema. Cardiac size is at the upper limits of normal. Lungs are clear. Chondroid lesions within the proximal right humerus favor enchondromas. No acute cardiomegaly findings.
[2019-01-30 16:06] LABS: Basophils # (auto) 0.07 K/uL (0-0.2); Basophils % (auto) 1.1 %; Eosinophils # (auto) 0.07 K/uL (0-0.5); Eosinophils % (auto) 1.1 %; Hematocrit (blood only) 41.9 % (37-47); Hemoglobin 14.4 g/dL (12.0-16.0); Immature Granulocytes # (auto) 0.01 K/uL (0.00-0.02); Immature Granulocytes % (auto) 0.2 %; Lymphocytes # (auto) 1.24 K/uL (1.2-3.4); Mean Corpuscular Hemoglobin 33.1 pg (25-34); Mean Corpuscular Hgb Conc 34.4 g/dL (32-36); Mean Corpuscular Volume 96.3 fL (80-100); Mean Platelet Volume 10.6 fL (7.4-10.4); Monocytes # (auto) 0.47 K/uL (0.11-0.59); Monocytes % (auto) 7.6 %; Neutrophils # (auto) 4.34 K/uL (1.4-6.5); Platelet Count 369 K/uL (130-400); RDW Coefficient of Variation 13.2 % (11.5-14.5); Red Blood Count 4.35 M/uL (4.2-5.4)
[2019-01-30 16:09] LABS: Appearance Urine Cloudy (Clear); Bacteria Urine Automated Negative (Negative); Blood Urine Negative (Negative); Color Urine Dark Yellow; Epithelial Cell Urine Auto >30 /lpf (0-5); Glucose Urine UA Negative (Negative); Ketones Urine Negative (Negative); Leukocyte Esterase Urine Negative (Negative); Nitrite Urine Negative (Negative); Protein Urine Negative (Negative); RBC Urine Automated 0-4 /hpf (0-4); Specific Gravity Urine 1.036 (1.000-1.030); Urobilinogen Urine Negative (Negative)
[2019-01-30 16:14] LABS: Albumin Level 3.6 gm/dl (3.4-5.0); BUN Creatinine Ratio 17.3 (10-20); Calcium 8.8 mg/dl (8.5-10.1); Creatinine Clr Calc Pharmacy 95.6 ml/min; Est GFR (African American) 112.1; Est GFR (Non-African American) 96.7; Potassium 3.8 mmol/L (3.5-5.1)
[2019-01-30 16:17] LABS: Partial Thromboplastin Ratio 0.9; Partial Thromboplastin Time 25.2 Seconds (21.0-31.0); Prothrombin Time 10.1 Seconds (9.0-12.0)
[2019-01-30 16:46] LABS: Bilirubin Urine Negative (Negative); Ictotest Urine Negative (Negative)
[2019-01-31 05:49] LABS: Estimated Average Glucose 123 mg/dl; Hemoglobin A1C 5.9 % (4.5-5.6)
--- NOTE | 2019-03-06 18:45 | History and Physical Report ---
DATE OF ADMISSION: 03/07/2019 CHIEF COMPLAINT: Chronic left knee pain and instability. HISTORY OF PRESENT ILLNESS: This is a 48-year-old female patient of Dr. Herrera'ravin complaining of chronic left knee pain, longstanding, now progressively getting worse. The patient has failed conservative treatment including viscosupplementation, anti-inflammatories, the use of an wood flour miller brace and home exercise program. The patient has increased pain with weightbearing activities and her pain does interfere with her activities of daily living. The patient has been diagnosed with end-stage osteoarthritis per clinical and radiographic exams. The patient wished to proceed with a left total knee arthroplasty. PAST MEDICAL HISTORY: Hypertension, asthma, anxiety, osteoarthritis, sciatica, obesity. SOCIAL HISTORY: Nonsmoker, nondrinker. FAMILY HISTORY: Noncontributory. REVIEW OF SYSTEMS: Chronic left knee pain and instability. Otherwise, denies any shortness of breath, chest pain, nausea, vomiting or any other joint complaints. PAST SURGICAL HISTORY: Right total knee replacement. MEDICATIONS: 1. Atenolol 50 mg twice daily. 2. Meloxicam 50 mg daily. 3. Nifedipine 30 mg daily. 4. Turmeric root extract 500 mg daily. 5. Citalopram 10 mg daily. 6. Aliya 60/120 2 times daily. 7. Vitamin B12 1000 mcg daily. ALLERGIES: AUGMENTIN, AZITHROMYCIN. PHYSICAL EXAMINATION: GENERAL: Well-developed, well-nourished 48-year-old female in no acute distress. She is alert and oriented x3 and pleasant. HEENT: Normocephalic, atraumatic. Extraocular motions are intact. Pupils are equal, reactive to light. HEART: Regular rate and rhythm, no murmurs. LUNGS: Clear. ABDOMEN: Soft, nontender, bowel sounds present. EXTREMITIES: Left knee reveals limited range of motion of 0-120 with crepitation. She has a varus deformity with mild effusion. She has 5/5 strength with pain. Neurologically and neurovascularly she is intact left lower extremity. DIAGNOSES: Left knee end-stage osteoarthritis, hypertension, asthma, anxiety, osteoarthritis, sciatica, obesity. PLAN: The patient was advised of her diagnosis. Indications, risks, benefits, postop course have all been reviewed. The patient wished to proceed with a left total knee arthroplasty. Necessary consent forms, preoperative testing and clearances will be obtained.
[~2019-03-07 07:30] MED LIST changes: -BUPIVACAINE/EPINEPHRINE 0.5% MPF 1:200,000 30 ML VIAL ONE; -DEXAMETHASONE SOD INJ 4 MG/ML VIAL ONE; +EPINEPHrine INJ 1 MG/ML AMP ONE; -GABAPENTIN 300 MG x 3 PO SCH; +GABAPENTIN 900 MG DOSE PO SCH; -LR 15ML/HR IV SCH; +LR 500ML BOLUS, THEN 15ML/HR IV SCH; +ROPIVACAINE 0.5% 5 MG/ML 30 ML VIAL ONE; -ROPIVACAINE 0.5% HCL/PF 150 MG, BUPIVACAINE 0.5% MPF 30 ML, EPINEPHrine 30MG/30ML (OR U... INFIL SCH; +ROPIVACAINE 0.5% HCL/PF 150 MG, BUPIVACAINE 0.5% MPF 30 ML, EPINEPHrine 30MG/30ML (OR U... INSTIL SCH
--- NOTE | 2019-03-07 07:56 | History & Physical Bridge Note ---
Date of Service March 07, 2019 History & Physical Bridge Note I have examined the patient, reviewed the History & Physical and in the interval since the performance of the History & Physical I have noted the following changes of clinical significance: no changes noted
[2019-03-07] MEDS ORDERED: ORTHO JOINT ANESTHETIC ONE (08:13)
[2019-03-07] MEDS ORDERED: MEPERIDINE HCL 25 MG/ML CARP IV PRN (08:26)
[2019-03-07] MEDS ORDERED: ONDANSETRON INJ 2 MG/ML 2 ML VIAL IV PRN ×2 (08:26→13:14)
[2019-03-07] MEDS ORDERED: PHENYLEPHRINE 100MCG/ML 5ML SYR IV PRN (08:26)
[2019-03-07] MEDS ORDERED: ePHEDrine sulfate 50 MG/ML AMP IV PRN (08:26)
[2019-03-07] MEDS ORDERED: ATROPINE SULFATE 0.1 MG/ML 10ML SYR IV PRN (08:26)
[2019-03-07] MEDS ORDERED: HYDROmorphone INJ 1 MG/ML SYRINGE IV PRN (08:26)
[2019-03-07] MEDS ORDERED: fentaNYL citrate 100 MCG/2 ML VIAL IV PRN (08:26)
[2019-03-07] MEDS ORDERED: LABETALOL HCL IV 5 MG/ML 20ML IV PRN (08:26)
[2019-03-07] MEDS ORDERED: fentaNYL citrate 100 MCG/2 ML VIAL ONE (10:00)
[2019-03-07] MEDS ORDERED: MIDAZOLAM HCL 1 MG/ML 2ML VIAL ONE (10:00)
[2019-03-07] MEDS ORDERED: BACITRACIN INJ 50,000 UNIT VIAL ONE (10:11)
[2019-03-07] MEDS ORDERED: LIDOCAINE HCL 2% 2 ML VIAL/AMP(20MG/ML) INFIL ONE (10:32)
[2019-03-07] MEDS ORDERED: ONDANSETRON INJ 2 MG/ML 2 ML VIAL ONE (10:32)
[2019-03-07] MEDS ORDERED: PROPOFOL IV EMULSION 10 MG/ML 20 ML VIAL IV ONE (10:32)
--- NOTE | 2019-03-07 11:52 | Post Operative Brief Note ---
Immediate Post Op Note v1 Date of Surgery March 07, 2019 Pre & Post Diagnosis Operation Date: 03/07/19 10:00 <No data on this case meets the specified criteria> Preoperative diagnosis :left knee end-stage osteoarthritis postop diagnosis: Left knee end-stage osteoarthritis I identified the patient and participated in the time-out.: Yes Procedure Operation Date: 03/07/19 10:00 <No data on this case meets the specified criteria> Left total knee arthroplasty and lateral release Surgeon Abhinav Herrera MD Dishwashing Machine Repairer Scott NICOLE Estimated Blood Loss 2 Findings Consistent with Post-Op Diagnosis Specimens Bone cuts Drains Hemovac Drain Anesthesia Type MAC Spinal Regional Complications none Disposition Accompanied Patient To Recovery: No Disposition: Recovery Room Overlapping Procedure I was present for: the critical portions of procedure. Back up surgeon: was not required during procedure.
--- NOTE | 2019-03-07 13:01 | Anesthesiology Progress Note ---
Date of Service March 07, 2019 Anesthesia Post Procedure Vital Signs Vital Signs: Temp Pulse Pulse Resp BP Pulse Ox 03/07/19 12:50 37.0 C 89 18 108/60 94 03/07/19 12:40 94 H 19 102/61 97 03/07/19 12:30 37.7 C H 99 H 17 102/57 L 97 03/07/19 08:13 36.8 C 73 18 133/83 98 Transfer of Care Handoff Completed per policy Notes Mental Status: alert / awake / arousable Patient Amnestic to Procedure: Yes Nausea / Vomiting: adequately controlled Pain: adequately controlled Airway Patency, RR, SpO2: stable & adequate BP & HR: stable & adequate Hydration State: stable & adequate Neuraxial Anesthesia: was administered and sensory block is resolving Anesthetic Complications: no major complications apparent and Pt Satisfied with anesthetic care
--- NOTE | 2019-03-07 13:04 | XRay Report ---
XR knee LT 1 or 2V routine CLINICAL HISTORY: Surgical Post Op COMPARISON: None FINDINGS: Alignment of the total left knee arthroplasty is anatomic. There is no fracture or unexpec jagdeep radiopaque foreign body. Surgical drains are in place. IMPRESSION: Expected findings following total left knee arthroplasty. ACT 112: Negative or not required by law. Electronically signed by: Demetrius Myrick M.D. 03/07/2019 1:02 PM
[2019-03-07] MEDS ORDERED: FLUTICASONE PROPIONATE NA SPR 16 GM BTL PRN (13:14)
[2019-03-07] MEDS ORDERED: HYDROmorphone INJ 0.5 MG/0.5 ML SYR IV PRN (13:14)
[2019-03-07] MEDS ORDERED: bisacodyL 10 MG SUPP PR PRN (13:14)
[2019-03-07] MEDS ORDERED: MAGNESIUM HYDROXIDE SUSP 30 ML UDC PO PRN (13:14)
[2019-03-07] MEDS ORDERED: VANCOMYCIN CONSULT ACTIVE PRN (13:14)
[2019-03-07] MEDS ORDERED: ALBUTEROL HFA 8 GM INHALER INH PRN (13:14)
[2019-03-07] MEDS ORDERED: NALOXONE HCL 0.4 MG/1 ML VIAL/CARP IV PRN (13:14)
[2019-03-07] MEDS: SODIUM CHLORIDE 0.9% 1000ML 1,000 ML IV SCH ×2 (13:25→21:23)
[2019-03-07] MEDS: ACETAMINOPHEN 500 MG TAB PO SCH ×2 (14:22→21:04)
--- NOTE | 2019-03-07 15:31 | Internal Medicine Consult Note ---
Date of Consultation March 07, 2019 Assessment & Plan (1) Status post total left knee replacement: -This is a 48 year old patient under the direct care of orthopedics Dr. Herrera, with hospitalist medicine following as consult service. Patient on 03/07/2019 had left total knee arthroplasty and lateral release. -wound vac management as per orthopedic service -PT/OT evaluation will be needed -prn pain medications, senna and colce, prn antimetics -monitor hemoglobin, orthopedic service ordered iron supplements DVT prophylaxis -orthopedic service have ordered Xarelto (2) Hypertension: -continue home dose atenolol , nifedipine (3) Adjustment disorder with anxious mood: -mood stable -continue home dose citalopram and buspirone History of Present Illness Reason for Consultation: postop management Requesting Physician: Dr. Herrera Attending Physician: Abhinav Herrera MD History of Present Illness This is a 48 year old patient under the direct care of orthopedics Dr. Herrera, with hospitalist medicine following as consult service. Patient on 03/07/2019 had left total knee arthroplasty and lateral release. Patient seen and examined by hospitalist after the surgery and patient is comfortable. left leg in dressing, left knee with wound vac with blood. patient breathing on room air. no chest pain. no palpitations. no dizziness. no headache. no nausea. no vomiting. no acute distress. Family History of Mother with diabetes mellitus and Father with atrial fibrillation and hemochromatosis, hypertension in family history of multiple other family relations Allergies Allergy/AdvReac Type Severity Reaction Status Date / Time azithromycin [From Zithromax] AdvReac Severe vomiting, Verified 01/30/19 14:48 headache hydralazine AdvReac Severe lightheaded, Verified 01/30/19 14:48 vomiting, headache amoxicillin AdvReac Mild "not Verified 03/07/19 08:05 effective" Home Medications Home Medications Medication Instructions Recorded Confirmed Type albuterol sulfate [Ventolin HFA] 2 puff INHALATION Q4H PRN 03/28/18 03/07/19 History atenolol 50 mg PO BID 03/28/18 03/07/19 History buspirone 5 mg PO BID PRN 03/28/18 03/07/19 History citalopram 10 mg PO HS 03/28/18 03/07/19 History cyanocobalamin (vitamin B-12) 1,000 mcg PO QAM 03/28/18 03/07/19 History [Vitamin B-12] digestive enzymes 1 tab PO AC 03/28/18 03/07/19 History fexofenadine [Aliya Allergy] 180 mg PO HS 03/28/18 03/07/19 History fexofenadine-pseudoephedrine 1 tab PO Q12H PRN 03/28/18 03/07/19 History [Aliya-D 12 Hour] fluconazole 150 mg PO UD 03/28/18 03/07/19 History fluticasone propionate [Flonase 2 spray INTRANASAL BID PRN 03/28/18 03/07/19 History Allergy Relief] lutein 6 mg PO HS 03/28/18 03/07/19 History nifedipine 30 mg PO QAM 03/28/18 03/07/19 History turmeric root extract 500 mg PO QAM 03/28/18 03/07/19 History sennosides [Senokot] 17.2 mg PO HS #30 tab 05/03/18 03/07/19 Rx meloxicam 15 mg PO QAM 01/24/19 03/07/19 History Patient History Medical History Anxiety Asthma exercise induced.stable Depression Hypertension Morbid obesity Osteoarthritis Surgical History H/O laparoscopy For infertility H/O wisdom tooth extraction History of total knee replacement RIGHT Family History Mother Family history of diabetes mellitus Grandfather (Paternal) Family history of diabetes mellitus Grandmother (Paternal) Family history of diabetes mellitus Social History Preferred Language: Tajik Communication Ability: Effective Rock Room Worker Required: No Beliefs That Will Affect Care: None Current Living Situation: Spouse Other Information That Helps Us Care for You: No Feels Safe at Home: Yes Safety Concerns: Feels Safe At This Time Smoking Status: Never smoker Do You Dip or Chew Tobacco: No ; Second Hand Exposure: No ; Hx Alcohol Use: No Hx Substance Use: No Review of Systems Review of Systems: All systems reviewed & are unremarkable except as noted in HPI & below Physical Exam Constitutional: comfortable Eyes: PERRL, conjunctivae normal, anicteric sclerae EOM intact bilaterally ENMT: external ear and nose normal, oropharynx normal Neck: normal visual inspection Respiratory: normal respiratory effort, lungs clear to auscultation Cardiovascular: Rate/Rhythm: regular rate and regular rhythm Gastrointestinal (Abdomen): normal bowel sounds, soft, nontender, no hepatosplenomegaly Musculoskeletal: left leg in dressing, left knee with wound vac with blood Neurologic: PERRL, EOMI, accommodation nl, no face palsy, no dysarthria Psychiatric: A+Ox3, euthymic affect Results & Data Vital Signs (Past 12 Hours) Vital Signs Temp Pulse Pulse Pulse Resp BP Pulse Ox 03/07/19 15:15 36.5 C 88 16 130/76 95 03/07/19 14:15 88 14 110/66 95 03/07/19 13:45 79 14 108/71 96 03/07/19 13:15 37.2 C 88 14 112/69 97 03/07/19 13:00 37.0 C 89 16 111/60 95 03/07/19 12:50 37.0 C 89 18 108/60 94 03/07/19 12:40 94 H 19 102/61 97 03/07/19 12:30 37.7 C H 99 H 17 102/57 L 97 03/07/19 08:13 36.8 C 73 18 133/83 98
[2019-03-07] MEDS: OXYCODONE HCL IR 5 MG TAB (IMMEDIATE RELEASE) PO PRN ×2 (17:00→21:03)
[2019-03-07] MEDS: FERROUS GLUCONATE 324 MG TAB PO SCH (17:00)
[2019-03-07] MEDS ORDERED: VANCOMYCIN HCL 1,500 MG in SODIUM CHLORIDE 0.9% 500 ML IV SCH (20:00)
[2019-03-07] MEDS: SENNA 8.6 MG TAB PO SCH (20:15)
[2019-03-07] MEDS: CITALOPRAM 20 MG TAB PO SCH (20:16)
[2019-03-07] MEDS: ATENOLOL 50 MG TABLET PO SCH (20:16)
[2019-03-07] MEDS: DOCUSATE SODIUM 100 MG CAP PO SCH (20:16)
[2019-03-07] MEDS: FEXOFENADINE HCL 180 MG TAB PO SCH (20:18)
--- NOTE | 2019-03-07 20:44 | Operative Report ---
Post Operative Report Pre & Post Diagnosis Operation Date: 03/07/19 10:00 Pre-Op Diagnosis: Left Knee Osteoarthritis Post-Op Diagnosis: Left Knee Osteoarthritis I identified the patient and participated in the time-out.: Yes Procedure Operation Date: 03/07/19 10:00 Actual Procedures p Left Total Knee Arthroplasty(Left) - Abhinav Herrera MD Surgeon Abhinav Herrera MD School Bus Driver Scott NICOLE Estimated Blood Loss 2 Findings Consistent with Post-Op Diagnosis Specimens Bone cuts Drains 2 Hemovac Anesthesia Type MAC Spinal Regional Complications none Disposition Accompanied Patient To Recovery: No Disposition: Recovery Room Indications 48-year female who is status post right knee replacement in the past. She now has progressive osteoarthritis her left knee with [id number] medial compartment and patellofemoral DJD with a varus knee and patient wants proceed with knee replacement at this time. Description of Procedure The patient was taken to the operating room and anesthetized under spinal MAC regional. Patient was placed supine on the the operating table. A pneumatic tourniquet was placed about the left upper thigh. The knee exam demonstrated 5 through 125 degrees range of motion no instability [id number] crepitation. The involved leg was elevated exsanguinated with Esmarch bandage and the pneumatic tourniquet was raised to 325 millimeters mercury. A longitudinal incision was made across the anterior knee. Skin flaps were elevated. An incision was made into the medial retinaculum and extended up into the mid third of the quadriceps tendon and extended down to the tibial tubercle. Intra- articular findings demonstrated tricompartmental DJD grade 4 DJD patellofemoral joint grade 4 DJD medial compartment with varus knee.. The knee was exposed by excising cruciate ligaments and menisci. The infrapatellar fat pad was resected. The fat pad over the anterior femur at the upper aspect of the articular surface was resected for placement of the component in that area. A subperiosteal peel lateral release was performed around the patella The Hernandez [employer] Nephew DuraFizzney 2.0 total knee arthroplasty system was utilized for the procedure. The custom femoral cutting guide was pinned in position. The distal femoral cut was made. The size 4, 5 in 1 cutting block was placed. The anterior posterior and chamfer cuts were made. The knee was extended and a free hand cut technique was performed to the patella. The patella with was measured and the width was reproduced using a 29 symmetrical patella component. 3 drill holes are made for the patella component pegs. The tibia was then subluxed. The custom tibial cutting block was pinned in position and the proximal tibial cut was made with the oscillating saw. The size 2 tibial trial was externally rotated in line with the tibial tubercle and pinned in position. The punch for the stem was used. The femoral trial was inserted and centered the notch cutting devices were used and the collet was placed. Tibial trials were used for the insert. The size 13 trial gave balanced ligaments through full range of motion. Patella tracking was assessed with range of motion. The patella tracked slightly laterally so I did a lateral release leaving the synovium intact. Patella tracks centrally afterward. The trials were removed. The Orthomix anesthetic cocktail was injected per protocol. The cut bone surfaces and soft tissue were copiously irrigated with antibiotic solution with bacitracin. The final components were cemented with Simplex cement. The final components were Hernandez [employer] Nephew journey 2.04 posterior stabilized left femur, 2 primary tibial baseplate, 13 polyethylene posterior stabilized tibial insert and 29 symmetrical patella. While the cement cured the Betadine soak was used per protocol. When the cement cured the knee was copiously irrigated with pulsatile lavage antibiotic solution with bacitracin. 2 drains were brought out laterally connected to Hemovac. The quadriceps tendon and medial retinaculum were closed with interrupted [id number] #1 Vicryl sutures. The knee was taken through full range of motion and repair was secure. The subcutaneous tissues were closed with locking absorbable sutures and Monocryl and the skin was closed with surgical glue system. A sterile dressing was applied. The tourniquet was let down and the patient had good capillary refill to the extremity. The patient tolerated the procedure well. My physician payroll and benefits assistant Scott NICOLE assisted in the procedure including prepping draping leg positioning soft tissue retraction instrument management and assisted in the closure ,dressings application and will participate in postoperative care the patient. I attest to the content of the Intraoperative Record and any orders documented therein. Any exceptions are noted below.
[2019-03-07] MEDS ORDERED: ASPIRIN 81 MG ECTAB PO SCH (21:00)
[2019-03-08] MEDS: OXYCODONE HCL IR 5 MG TAB (IMMEDIATE RELEASE) PO PRN ×6 (01:12→23:23)
[2019-03-08] MEDS: ACETAMINOPHEN 500 MG TAB PO SCH ×3 (05:21→21:07)
[2019-03-08 06:03] LABS: Hematocrit (blood only) 37.5 % (37-47); Hemoglobin 12.9 g/dL (12.0-16.0); Mean Corpuscular Hemoglobin 32.9 pg (25-34); Mean Corpuscular Hgb Conc 34.4 g/dL (32-36); Mean Corpuscular Volume 95.7 fL (80-100); Mean Platelet Volume 10.2 fL (7.4-10.4); Platelet Count 336 K/uL (130-400); RDW Coefficient of Variation 13.2 % (11.5-14.5); RDW Standard Deviation 45.7 fL (36.4-46.3); Red Blood Count 3.92 M/uL (4.2-5.4); White Blood Count 16.88 K/uL (4.8-10.8)
[2019-03-08 06:37] LABS: BUN Creatinine Ratio 17.8 (10-20); Calcium 8.5 mg/dl (8.5-10.1); Creatinine Clr Calc Pharmacy 92.5 ml/min; Est GFR (African American) 108.5; Est GFR (Non-African American) 93.6; Potassium 3.7 mmol/L (3.5-5.1)
--- NOTE | 2019-03-08 08:17 | Hospitalist Progress Note ---
Date of Service March 08, 2019 Assessment & Plan (1) Status post total left knee replacement: -This is a 48 year old patient under the direct care of orthopedics Dr. Herrera, with hospitalist medicine following as consult service. Patient on 03/07/2019 had left total knee arthroplasty and lateral release. -wound vac management as per orthopedic service -PT/OT evaluations -prn pain medications, senna and colce, prn antimetics -monitor hemoglobin, orthopedic service ordered iron supplements -hospitalist service order additional bowel regimen of miralax q12 hours to promote bowel movement -Hemoglobin is 12.9 on 03/08/2019 which is generally stable considering patient makes output in to wound vac -management of wound vac as per orthopedics DVT prophylaxis -orthopedic service have ordered Xarelto 10 mg daily (2) Hypertension: -continue home dose atenolol , nifedipine (3) Adjustment disorder with anxious mood: -mood stable -continue home dose citalopram and buspirone Subjective left knee in dressing, left knee with wound vac. patient able to ambulate yesterday. patient passing flatus. no bowel movement since the surgery. no acute pain of abdomen. no chest pain. breathing on room air. no shortness of breath. no dizziness. no headache. Review of Systems Review of Systems: All systems reviewed & are unremarkable except as noted in HPI & below Physical Exam Constitutional: comfortable Eyes: PERRL, conjunctivae normal, anicteric sclerae EOM intact bilaterally ENMT: external ear and nose normal, oropharynx normal Neck: normal visual inspection Respiratory: normal respiratory effort, lungs clear to auscultation Cardiovascular: Rate/Rhythm: regular rate and regular rhythm Gastrointestinal (Abdomen): normal bowel sounds, soft, nontender, no hepatosplenomegaly Musculoskeletal: left knee in dressing, left knee with wound vac Neurologic: PERRL, EOMI, accommodation nl, no face palsy, no dysarthria Psychiatric: A+Ox3, euthymic affect Results & Data Vital Signs (Past 12 Hours) Vital Signs Temp Pulse Resp BP Pulse Ox 03/08/19 03:35 36.9 C 81 15 114/72 98 03/07/19 23:16 36.8 C 76 14 111/65 95
--- NOTE | 2019-03-08 08:30 | Anesthesiology Progress Note ---
Date of Service March 08, 2019 Anesthesia Post Procedure Vital Signs Vital Signs: Temp Pulse Pulse Pulse Resp BP BP 03/08/19 03:35 36.9 C 81 15 114/72 03/07/19 23:16 36.8 C 76 14 111/65 03/07/19 19:13 36.6 C 90 14 110/70 03/07/19 16:22 36.7 C 87 16 112/67 03/07/19 16:18 36.7 C 03/07/19 15:15 36.5 C 88 16 130/76 03/07/19 14:15 88 14 110/66 03/07/19 13:45 79 14 108/71 03/07/19 13:15 37.2 C 88 14 112/69 03/07/19 13:00 37.0 C 89 16 111/60 03/07/19 12:50 37.0 C 89 18 108/60 03/07/19 12:40 94 H 19 102/61 03/07/19 12:30 37.7 C H 99 H 17 102/57 L Pulse Ox 03/08/19 03:35 98 03/07/19 23:16 95 03/07/19 19:13 95 03/07/19 16:22 94 03/07/19 16:18 03/07/19 15:15 95 03/07/19 14:15 95 03/07/19 13:45 96 03/07/19 13:15 97 03/07/19 13:00 95 03/07/19 12:50 94 03/07/19 12:40 97 03/07/19 12:30 97 Notes Mental Status: alert / awake / arousable Patient Amnestic to Procedure: Yes Nausea / Vomiting: adequately controlled Pain: adequately controlled Airway Patency, RR, SpO2: stable & adequate BP & HR: stable & adequate Hydration State: stable & adequate Neuraxial Anesthesia: was administered and sensory block resolved Anesthetic Complications: no major complications apparent
--- NOTE | 2019-03-08 08:36 | Orthopedic Progress Note ---
Date of Service March 08, 2019 Assessment & Plan (1) Status post total left knee replacement: POD #1, Left TKA PT/ OT DVT proph- Xarelto D/C plans Home w OPPT As per medicine. Subjective POD #1, Doing well. Denies SOB, CP, N/V. Toes/ ankle mobile. No calf tenderness. A&Ox3. Results & Data Vital Signs (Past 12 Hours) Vital Signs Temp Pulse Resp BP Pulse Ox 03/08/19 03:35 36.9 C 81 15 114/72 98 03/07/19 23:16 36.8 C 76 14 111/65 95
[2019-03-08] MEDS: RIVAROXABAN 10 MG TABLET PO SCH (08:59)
[2019-03-08] MEDS: POLYETHYLENE (MIRALAX) 17 GM PACK PO SCH ×2 (08:59→21:10)
[2019-03-08] MEDS: CYANOCOBALAMIN 500 MCG TABLET (VITAMIN B-12) PO SCH (08:59)
[2019-03-08] MEDS: MULTIVITAMIN TAB PO SCH (09:00)
[2019-03-08] MEDS: ATENOLOL 50 MG TABLET PO SCH ×2 (09:00→21:09)
[2019-03-08] MEDS: DOCUSATE SODIUM 100 MG CAP PO SCH ×2 (09:00→21:06)
[2019-03-08] MEDS: FERROUS GLUCONATE 324 MG TAB PO SCH ×2 (09:00→16:33)
[2019-03-08] MEDS: NIFEdipine EXTENDED REL 30 MG TABCR PO SCH (09:00)
[2019-03-08] MEDS ORDERED: DiphenhydrAMINE HCL 50 MG/ML VIAL IV PRN (17:40)
[2019-03-08] MEDS: CITALOPRAM 20 MG TAB PO SCH (21:05)
[2019-03-08] MEDS: SENNA 8.6 MG TAB PO SCH (21:06)
[2019-03-08] MEDS: FEXOFENADINE HCL 180 MG TAB PO SCH (21:07)
[2019-03-09] MEDS: ACETAMINOPHEN 500 MG TAB PO SCH (06:02)
[2019-03-09] MEDS: OXYCODONE HCL IR 5 MG TAB (IMMEDIATE RELEASE) PO PRN ×2 (07:31→12:37)
[2019-03-09] MEDS: DOCUSATE SODIUM 100 MG CAP PO SCH (07:33)
[2019-03-09] MEDS: NIFEdipine EXTENDED REL 30 MG TABCR PO SCH (07:33)
[2019-03-09] MEDS: ATENOLOL 50 MG TABLET PO SCH (07:33)
[2019-03-09] MEDS: MULTIVITAMIN TAB PO SCH (07:33)
[2019-03-09] MEDS: FERROUS GLUCONATE 324 MG TAB PO SCH (07:33)
[2019-03-09] MEDS: RIVAROXABAN 10 MG TABLET PO SCH (07:34)
[2019-03-09] MEDS: CYANOCOBALAMIN 500 MCG TABLET (VITAMIN B-12) PO SCH (07:34)
[2019-03-09] MEDS: POLYETHYLENE (MIRALAX) 17 GM PACK PO SCH (07:34)
--- NOTE | 2019-03-09 08:09 | Hospitalist Progress Note ---
Date of Service March 09, 2019 Assessment & Plan (1) Status post total left knee replacement: -This is a 48 year old patient under the direct care of orthopedics Dr. Herrera, with hospitalist medicine following as consult service. Patient on 03/07/2019 had left total knee arthroplasty and lateral release. -wound vac management as per orthopedic service -PT/OT evaluations -prn pain medications, senna and colce, prn antimetics -monitor hemoglobin, orthopedic service ordered iron supplements -hospitalist service order additional bowel regimen of miralax q12 hours to promote bowel movement starting on 03/08/2019 -Hemoglobin is 12.9 on 03/08/2019 which is generally stable considering patient makes output in to wound vac -wound vac removed on 03/08/2019 -03/09/2019: patient waiting to work with physical therapy and may possibly be discharged by orthopedic service. advised patient to follow up with orthopedic clinic and primary care doctor after hospital discharge. DVT prophylaxis -orthopedic service have ordered Xarelto 10 mg daily (2) Hypertension: -continue home dose atenolol , nifedipine (3) Adjustment disorder with anxious mood: -mood stable -continue home dose citalopram and buspirone Subjective Patient's wound vac was removed yesterday. Patient has dressing over left knee that is blood tinged. patient reports pain is controlled. Patient is not in distress. breathing on room air. no shortness of breath. Review of Systems Review of Systems: All systems reviewed & are unremarkable except as noted in HPI & below Physical Exam Constitutional: comfortable Eyes: PERRL, conjunctivae normal, anicteric sclerae EOM intact bilaterally ENMT: external ear and nose normal, oropharynx normal Neck: normal visual inspection Respiratory: normal respiratory effort, lungs clear to auscultation Cardiovascular: Rate/Rhythm: regular rate and regular rhythm Gastrointestinal (Abdomen): normal bowel sounds, soft, nontender, no hepatosplenomegaly Musculoskeletal: left knee scar. left knee has dressing that is blood tinged Neurologic: PERRL, EOMI, accommodation nl, no face palsy, no dysarthria Psychiatric: A+Ox3, euthymic affect Results & Data Vital Signs (Past 12 Hours) Vital Signs Temp Pulse Pulse Resp BP BP Pulse Ox 03/09/19 06:47 36.7 C 77 16 132/78 95 03/08/19 23:15 134/86 03/08/19 23:14 37.2 C 79 16 158/78 H 97
--- NOTE | 2019-03-09 10:07 | Orthopedic Progress Note ---
Date of Service March 09, 2019 Assessment & Plan (1) Status post total left knee replacement: POD #2, Left TKA PT/ OT DVT proph- Xarelto D/C plans Home w OPPT--plan for d/c today. As per medicine. Subjective POD #2, Doing well. Denies SOB, CP, N/V. Toes/ ankle mobile. No calf pain. Pain is controlled in knee. Feels PT is going well. Wants to do OPPT because she feels she will have more success with ROM. Physical Exam Constitutional: WD/WN, vitals as above Musculoskeletal: Knee: + surgical incision (left knee: incision well approximated. Dermabond Prineo in place.); knee normal to inspection, no deformity, no skin erythema, no ecchymosis and no surgical drain present (hemovac has been removed) Psychiatric: A+Ox3, euthymic affect Results & Data Vital Signs (Past 12 Hours) Vital Signs Temp Pulse Pulse Resp BP BP Pulse Ox 03/09/19 06:47 36.7 C 77 16 132/78 95 03/08/19 23:15 134/86 03/08/19 23:14 37.2 C 79 16 158/78 H 97
--- NOTE | 2019-03-13 14:23 | Discharge Summary ---
Date of Service March 13, 2019 Admission HPI Per Admitting Provider HISTORY OF PRESENT ILLNESS: This is a 48-year-old female patient of Dr. Herrera'ravin complaining of chronic left knee pain, longstanding, now progressively getting worse. The patient has failed conservative treatment including viscosupplementation, anti-inflammatories, the use of an content architect brace and home exercise program. The patient has increased pain with weightbearing activities and her pain does interfere with her activities of daily living. The patient has been diagnosed with end-stage osteoarthritis per clinical and radiographic exams. The patient wished to proceed with a left total knee arthroplasty. Admission Exam Per Admitting Provider PHYSICAL EXAMINATION: GENERAL: Well-developed, well-nourished 48-year-old female in no acute distress. She is alert and oriented x3 and pleasant. HEENT: Normocephalic, atraumatic. Extraocular motions are intact. Pupils are equal, reactive to light. HEART: Regular rate and rhythm, no murmurs. LUNGS: Clear. ABDOMEN: Soft, nontender, bowel sounds present. EXTREMITIES: Left knee reveals limited range of motion of 0-120 with crepitation. She has a varus deformity with mild effusion. She has 5/5 strength with pain. Neurologically and neurovascularly she is intact left lower extremity Principal Diagnosis Left knee DJD Discharge Exam WD/WN, vitals as above Musculoskeletal: Knee: + surgical incision (left knee: incision well approximated. Dermabond Prineo in place.); knee normal to inspection, no deformity, no skin erythema, no ecchymosis and no surgical drain present (hemovac has been removed) Psychiatric: A+Ox3, euthymic affect Discharge Data Allergies Allergy/AdvReac Type Severity Reaction Status Date / Time azithromycin [From Zithromax] AdvReac Severe vomiting, Verified 01/30/19 14:48 headache hydralazine AdvReac Severe lightheaded, Verified 01/30/19 14:48 vomiting, headache amoxicillin AdvReac Mild "not Verified 03/07/19 08:05 effective" Consultations 03/02/19 16:03 Consult Hospitalist Routine 03/07/19 13:14 Consult Case Management - Discharge Planning Routine Procedures Performed Operation Date: 03/07/19 10:00 Actual Procedures p Left Total Knee Arthroplasty(Left) - Abhinav Herrera MD Ordered Studies 03/07/19 05:00 US - OR guided needle placemen Routine Hospital Course (1) Status post total left knee replacement: POD #2, Left TKA Patient progressing well with physical therapy. Pain remain controlled. Incision remaining benign. Patient was thusly discharged home. PT/ OT DVT proph- Xarelto D/C plans Home w OPPT--plan for d/c today. As per medicine. Total Time Total Time Spent Total Time Spent (In Minutes): 5 Discharge Plan Discharge Items Patient Disposition: Home - Self-Care Reason For Visit: Left Knee Osteoarthritis Discharge Diagnosis: left knee osteoarthritis Activity: Per Instructions section Weightbearing: Full weightbearing Non-emergency contact: Surgeon Call non-emergency contact if: your pain is not controlled, your pain is wors ening and your temperature is above 101 Follow-up/Referrals: Naheed Myrick PA-C [Primary Care Provider] - Diet: Regular Addtl Attending Provider Instructions: ACTIVITY RECOMMENDATIONS: SELF CARE INSTRUCTIONS AFTER TOTAL KNEE REPLACEMENT A. You may need to continue a physical therapy program after discharge from the hospital. There are several options available to you. Your doctor will assist you in selecting the best one for you. 1. An out-patient facility 3 times a week for therapy. 2. Home therapy for 1 to 2 weeks with outpatient therapy to follow. 3. Continue working on all exercises taught by physical therapy three times a day for 20 minutes on non-therapy days. Your goals should be to increase the bending of your knee to 90 degrees and beyond and to fully straighten your knee. Ice and elevate knee after exercise. B. Weight as tolerated with a walker or as instructed by your physician. C. It is okay to shower if minimal to no drainage from incision. No Baths. Do not soak wound. D. Make walking a part of your daily routine. Be up as much as comfortable with rest periods throughout the day. Rest with leg elevation is very imp ortant. Use the ice wrap frequently for the first 3-4 weeks. E. There are no restrictions on activities. You may ride in a car, shop, participate in display fabrication supervisor and all social activities. F. Wear the long elastic stockings (VASILIY hose) 20 hours a day for one month after surgery. They can be removed several times a day for laundering and when showering. G. You have the Dermabond Prineo dressing on your incision. It will be removed at your first post operative visit. If the ends begin to come off the skin, you may cut the edges of it. You will be able to begin showering when instructed. There will be instructions given to take home with you. SPECIAL CARE INSTRUCTIONS: VERY IMPORTANT TO READ AND REVIEW A. Take Xarelto (blood thinning medications) as directed by your doctor. If on Coumadin, have a pro-time (blood test) drawn according to your doctor's instructions. This will tell the doctor how well the Coumadin is thinning your blood. B. There are a few signs you need to watch for after you are home. Call [facility] if you notice any of the followin. Increased severe knee pain. Some pain is expected especially when you exercise. 2. Increased swelling in your leg or knee; pain or swelling of the calf muscle in either lower leg. 3. Any redness or fluid drainage from the incision. 4. Shortness of breath or chest pain. 5. A Temperature of 101 degrees F or greater. C. Please call [facility] at if you have any concerns or questions about your operation or recovery. The doctor or his nurse will return your call promptly. D. You must take antibiotics before dental work, bladder, bowel or other surgery. Your doctor will provide you with a permanent care to carry describing this precaution. FOLLOW UP VISIT: If appointment is not already scheduled: Please call [facility] to make a follow-up appointment for 2 weeks after your surgery at . Pending Studies at Discharge: No Stand-Alone Forms: My [email or web address], Smoking Cessation Medications and DC Order Prescriptions: New acetaminophen 500 mg Tablet 1,000 mg PO Q8 Qty: 120 RF: 0 Xarelto 10 mg Tablet 10 mg PO DAILY Qty: 14 RF: 0 Continued digestive enzymes Tablet 1 tab PO AC RF: 0 nifedipine 30 mg Tablet Extended Release 24hr 30 mg PO QAM RF: 0 buspirone 5 mg Tablet 5 mg PO BID PRN (Reason: Anxiety) RF: 0 fluconazole 150 mg Tablet 150 mg PO UD RF: 0 citalopram 10 mg Tablet 10 mg PO HS RF: 0 cyanocobalamin (vitamin B-12) [Vitamin B-12] 1,000 mcg Tablet 1,000 mcg PO QAM RF: 0 fexofenadine [Aliya Allergy] 180 mg Tablet 180 mg PO HS RF: 0 albuterol sulfate [Ventolin HFA] 90 mcg/actuation Hfa Aerosol Inhaler 2 puff INHALATION Q4H PRN (Reason: SOB) RF: 0 fexofenadine-pseudoephedrine [Aliya-D 12 Hour] 60-120 mg Tablet Extended Release 12 Hr 1 tab PO Q12H PRN (Reason: Congestion) RF: 0 fluticasone propionate [Flonase Allergy Relief] 50 mcg/actuation [place],Suspension 2 spray INTRANASAL BID PRN (Reason: Nasal Congestion) RF: 0 atenolol 50 mg Tablet 50 mg PO BID RF: 0 turmeric root extract 500 mg Capsule 500 mg PO QAM RF: 0 lutein 6 mg Tablet 6 mg PO HS RF: 0 sennosides [Senokot] 8.6 mg Tablet 17.2 mg PO HS Qty: 30 RF: 0 meloxicam 15 mg Tablet 15 mg PO QAM RF: 0 Discharge Orders: Discharge Order (Routine); Ordered 03/09/19 Ordered By: Nathen Haile Admission Data Admit Date/Time: 03/07/19 12:38 Attending Provider: Abhinav Herrera Admit Provider: Abhinav Herrera Primary Care Provider: Naheed Myrick Other Providers: Marco Antonio Lane Other Interventions: Discharge Summary Assessment (RN) Last Done: 03/09/19 10:24 DC Date/Time DO NOT enter until pt leaves facility: 03/09/19 13:15
== END 2019-03-09 13:15 | disposition home or self-care (01) | DRG 470 ==
LOC: ASU 07:30 → 3E 12:38
DX: I10 Essential (primary) hypertension; Z79.899 Other long term (current) drug therapy; M17.12 Unilateral primary osteoarthritis, left knee; F32.9 Major depressive disorder, single episode, unspecified; J45.909 Unspecified asthma, uncomplicated; Z68.41 Body mass index [BMI] 40.0-44.9, adult; E66.01 Morbid (severe) obesity due to excess calories; F43.22 Adjustment disorder with anxiety